=== PATIENT | male | born 1985 | race Caucasian/White ===

== ENCOUNTER 2020-12-12 01:46 | Emergency (ER) | payer BC ==
[2020-12-12 02:07] VITALS: BP 166/88; PULSE 111
[2020-12-12] MEDS ORDERED: Fluorescein 1 MG Ophth Strip EYEBOTH ONE (02:13)
[2020-12-12] MEDS ORDERED: Fluorescein 1 MG Ophth Strip ONE (02:16)
--- NOTE | 2020-12-12 02:30 | EDM.PDOC ---
ED HPI GENERAL MEDICAL PROBLEM - General Chief Complaint: ENT Problem Stated Complaint: METAL IN LEFT EYE Time Seen by Provider: 12/12/20 02:03 Source of Information: Reports: Patient History Limitations: Reports: No Limitations - History of Present Illness INITIAL COMMENTS - FREE TEXT/NARRATIVE: The patient was grinding some metal around 1:00 yesterday afternoon when he got a piece of metal in his eye. He thought he got the metal out of that eye but it is continued to irritate him and he is continue to rub it. He comes to the ER because his eye is still bothering him. His upper lid is very swollen where he has been rubbing it so much. He states his vision is fairly normal other than blurry at times from the watering of the eye. Left Eye Pain Score (Numeric/FACES): 9 - Related Data Allergies Allergy/AdvReac Type Severity Reaction Status Date / Time No Known Allergies Allergy Verified 12/12/20 02:07 Past Medical History - Past Surgical History Neurological Surgical History: Reports: Other (See Below) Other Neurological Surgeries/Procedures: crainal surgery as infant Social & Family History - Family History Family Medical History: No Pertinent Family History - Tobacco Use Tobacco Use Status *Q: Current Every Day Tobacco User Years of Tobacco use: 20 Packs/Tins Daily: 1 - Caffeine Use Caffeine Use: Reports: Coffee, Energy Drinks, Soda, Tea - Recreational Drug Use Recreational Drug Use: No ED ROS ENT - Review of Systems Review Of Systems: See Below Constitutional: Denies: Fever, Chills HEENT: Reports: Eye Discharge, Eye Pain Respiratory: Reports: No Symptoms Cardiovascular: Reports: No Symptoms Endocrine: Reports: No Symptoms GI/Abdominal: Reports: No Symptoms : Reports: No Symptoms Musculoskeletal: Reports: No Symptoms Skin: Reports: No Symptoms Neurological: Reports: No Symptoms Psychiatric: Reports: No Symptoms ED EXAM, ENT - Physical Exam Exam: See Below Exam Limited By: No Limitations General Appearance: Alert, WD/WN, No Apparent Distress Eye Exam: Bilateral Eye: Normal Inspection, Other (His left eye upper lid is very swollen. With ophthalmoscope I did not see any obvious metal of this cornea, i.e. everted both his upper and lower lids I did not see any obvious foreign body. I placed fluorescein stain he does have a lot of irritation in the cul-de-sac of the lower lid a small abrasion to his cornea at the 9 o'clock position in his upper lid underside is also very irritated and inflamed.) Ears: Normal External Exam Nose: Normal Inspection Mouth/Throat: Normal Inspection Head: Normocephalic Neck: Supple Respiratory/Chest: No Respiratory Distress Back: Normal Inspection, Full Range of Motion Extremities: Normal Inspection, Normal Range of Motion Neurological: Alert, Oriented Psychiatric: Normal Affect, Normal Mood Skin: Warm, Dry Course - Vital Signs Last Recorded V/S: Last Vital Signs Temp 99.5 F 12/12/20 02:04 Pulse 111 H 12/12/20 02:04 Resp 18 12/12/20 02:04 BP 166/88 H 12/12/20 02:04 Pulse Ox 96 12/12/20 02:04 - Orders/Labs/Meds Meds: Medications Discontinued Medications Generic Name Dose Route Start Last Admin Trade Name Freq PRN Reason Stop Dose Admin Fluorescein Sodium 1 mg 12/12/20 02:13 Fluorescein 1 Mg Ophth Strip EYEBOTH 12/12/20 02:14 ONETIME ONE Fluorescein Sodium Confirm 12/12/20 02:16 Fluorescein 1 Mg Ophth Strip Administered 12/12/20 02:17 Dose 1 mg .ROUTE .STK-MED ONE Departure - Departure Time of Disposition: 02:28 Disposition: Home, Self-Care 01 Condition: Good Clinical Impression: Corneal abrasion, left Qualifiers: Encounter type: initial encounter Qualified Code(s): S05.02XA - Injury of conjunctiva and corneal abrasion without foreign body, left eye, initial encounter Conjunctivitis Qualifiers: Conjunctivitis type: unspecified Laterality: left Qualified Code(s): H10.9 - Unspecified conjunctivitis - Discharge Information *PRESCRIPTION DRUG MONITORING PROGRAM REVIEWED*: Not Applicable *COPY OF PRESCRIPTION DRUG MONITORING REPORT IN PATIENT ADI: Not Applicable Instructions: Corneal Abrasion, [id number] Referrals: PCP,None [Primary Care Provider] - Additional Instructions: Wear the eye patch until 6:00 this evening then you may take it off. Do not rub your left eye because that will continue the irritation but get some Artificial Tears and use those drops as often as you like for irritation in that left eye. If your left eye continues to bother you I would definitely see an eye Doctor on Monday and have them take a look at your eye again, return to the ER if needed Sepsis Event Note (ED) - Evaluation Sepsis Screening Result: No Definite Risk - Focused Exam Vital Signs: Vital Signs Temp Pulse Resp BP Pulse Ox 12/12/20 02:04 99.5 F 111 H 18 166/88 H 96
[2020-12-12] MEDS ORDERED: Erythromycin Base 0.5% Ophth Oint 1 GM Tube EYELF ONE (02:31)
== END 2020-12-12 02:55 | disposition home or self-care (01) ==
LOC: JD.ED 01:46
DX: S05.02XA Injury of conjunctiva and corneal abrasion without foreign body, left eye, initial encounter (principal); H10.9 Unspecified conjunctivitis; Z72.0 Tobacco use; X58.XXXA Exposure to other specified factors, initial encounter
CPT/HCPCS: 99283; A9270